=== PATIENT | female | born 1970 | race American Indian/Alaskan Native ===

== ENCOUNTER 2016-09-03 23:43 | Emergency (ER) | payer SELFPAY ==
[~2016-09-03 23:43] MED LIST: FOLVITE-DPS1 MG PO; THERA1 EACH PO; TOTAL B WITH C1 EACH PO; ULTRAM DPS50 MG PO; VENLAFAXINE HC150 MG PO; VITAMIN B1100 MG PO
--- NOTE | 2016-09-04 04:31 | ER ---
ADMIT: 09/03/2016 RM/LOC: ER [facility] MR#: [id number] [id number] [place] Sindhu [address] [id number] Emergency Room Report SEX: F AGE: 45 : 1970 DATE: 09/03/2016 HISTORY OF PRESENT ILLNESS: The patient is a 45-year-old female with a past medical history of anxiety, depression, and anemia, was brought to the ER allegedly overdosing on unknown number of trazodone. Allegedly, the patient called partner, told that she took some trazodone of unknown number and she said that she is tired of life. In the ER, the patient completely denied taking extra trazodone, but says that maybe she took 1 to 3 trazodone, but she could not know exactly home many pills she took. She has the pill bottle with herself, which is almost full. The patient states she took the trazodone, which is her regular dose about 4 hours ago. The patient states she has no nausea or vomiting or abdominal pain or chest pain or dizziness or palpitations. PHYSICAL EXAMINATION: VITAL SIGNS: The patient has stable vitals, in no obvious pain or distress. HEAD and NECK: Noncontributory. CHEST: Clear. HEART: Normal heart sounds. ABDOMEN: Soft. EXTREMITIES: Have normal range of motion without any swelling. The rest of physical exam is noncontributory. Poison Control has already contacted. EKG has mild elevation of the QT, questionable because of the psych meds. The patient had low potassium and received magnesium and K-Dur in the ER. The patient is stable to be discharged to the facility and followup with the primary doctor as needed. Lanre Jay MD/ lucius JOB #: [id number] CC: Lanre Jay MD, Attending Physician Julieth Murray MD, Family Physician
--- NOTE | 2016-09-04 15:40 | NUR ---
Received SAD person referral. Pt was [facility].
== END 2016-09-04 02:25 ==
LOC: ER 23:43
DX: T43.211A Poisoning by selective serotonin and norepinephrine reuptake inhibitors, accidental (unintentional), initial encounter (principal); E87.6 Hypokalemia; D64.9 Anemia, unspecified; F41.9 Anxiety disorder, unspecified; F32.9 Major depressive disorder, single episode, unspecified; F17.210 Nicotine dependence, cigarettes, uncomplicated; Z90.49 Acquired absence of other specified parts of digestive tract